=== PATIENT | female | born 1990 | race Caucasian/White ===

== ENCOUNTER 2016-12-12 07:45 | Emergency (ER) | payer SELFPAY ==
[2016-12-12] MEDS ORDERED: Acetaminophen 500 MG TAB ONE (08:52)
[2016-12-12 09:17] LABS: Bilirubin Negative (Negative); Blood, Urine Small (Negative); Glucose, Urine (Dipstick) Negative (Negative); Ketone, Urine 80 mg/dL (Negative); Nitrite Positive (Negative); Protein, Urine (Dipstick) 30 mg/dL (Neg-Trace); Urobilinogen 0.2 mg/dL (0.2-1.0)
[2016-12-12 09:19] LABS: Bacteria/HPF 4+ HPF (None Seen); RBC/HPF 21-50 HPF (0-3); Squamous Epithelial 0-3 HPF (0-3)
[2016-12-12 09:27] LABS: Hyaline Casts/LPF 0-3 HYALINE CAST LPF (0-3 Hyaline)
[2016-12-12] MEDS ORDERED: Lidocaine 1% PF 5 ML VIAL ONE (09:58)
[2016-12-12] MEDS ORDERED: cefTRIAXone\\ROCEPHIN 1 GM VIAL ONE (09:58)
== END 2016-12-12 10:30 | disposition home or self-care (01) ==
LOC: ERS 07:45
DX: N12 Tubulo-interstitial nephritis, not specified as acute or chronic (principal); F31.9 Bipolar disorder, unspecified
CPT/HCPCS: 81003; 81015; 81025; 87077; 87086; 87186; 96372; J0696; J2001

== ENCOUNTER 2017-03-20 13:04 | Emergency (ER) | payer SELFPAY | END 2017-03-20 13:08 | disposition left against medical advice (07) | LOC: ERS 13:04 | DX: Z53.21 Procedure and treatment not carried out due to patient leaving prior to being seen by health care provider (principal) ==